=== PATIENT | female | born 1970 | race Asian ===

== ENCOUNTER 2021-05-16 16:39 | Outpatient (REF) | payer OTHER, SELFPAY ==
[2021-05-16 18:59] LABS: Rheumatoid Factor < 15.0 IU/mL (<15.0)
[2021-05-16 19:19] LABS: Syphilis Screen Nonreactive (Nonreactive)
[2021-05-16 20:10] LABS: Erythrocyte Sedimentation Rate 6 MM/HR (0-20)
[2021-05-17 04:57] LABS: Lyme Abs Screen <0.90 index
[2021-05-17 20:00] LABS: Anti Nuclear Antibody Screen NEGATIVE (NEGATIVE)
[2021-05-22 15:16] LABS: DNAds, Crithidia Antibody Negative (Negative)
== END 2021-05-16 16:40 | disposition home or self-care (01) ==
LOC: HO.LAB 16:39
PROVIDERS: Visit Provider Psychiatry & Neurology Neurology
DX: R20.2 Paresthesia of skin (principal); M25.50 Pain in unspecified joint
CPT/HCPCS: 36415; 85652; 86038; 86039; 86255; 86431; 86617; 86618; 86780

== ENCOUNTER → 2021-06-29 08:48 | Outpatient (BNVA) | payer OTHER, SELFPAY | PROVIDERS: PCP Family Medicine; Visit Provider Psychiatry & Neurology Neurology | DX: M25.569 Pain in unspecified knee (principal); R20.0 Anesthesia of skin | CPT/HCPCS: 99212 ==